=== PATIENT | female | born 1980 | race Caucasian/White ===

== ENCOUNTER 2017-09-02 20:53 | Emergency (ER) | payer OTHER ==
[~2017-09-02] VITALS: Ht 160 cm; Wt 112.0 kg
[~2017-09-02 20:53] MED LIST: ALDACTONE25 MG PO; BUTALB-APAP-CA1 EACH PO; KEFLEX500 M1 PO; METFORMIN HCL500 MG PO; NEURONTIN 300300 M1 PO; NORVASC5 MG PO; PYRIDIUM100 M1 PO; TRAMADOL 50 MG50 MG PO
[2017-09-02] MEDS ORDERED: LIORESAL 10 MG10 MG (21:04)
[2017-09-02] MEDS ORDERED: NEURONTIN 300300 M1 (21:04)
[2017-09-02] MEDS ORDERED: TRAMADOL 50 MG50 MG PO (21:27)
[2017-09-02] MEDS ORDERED: PREDNISONE 10 MG PO (21:27)
[2017-09-02 21:36] VITALS: BP 114/68
== END 2017-09-02 21:37 | disposition home or self-care (01) ==
LOC: M.ERS 20:53
DX: M54.32 Sciatica, left side (principal); F17.210 Nicotine dependence, cigarettes, uncomplicated; Z88.6 Allergy status to analgesic agent; Z91.040 Latex allergy status; Z88.5 Allergy status to narcotic agent; Z88.8 Allergy status to other drugs, medicaments and biological substances